=== PATIENT | male | born 1985 | race African-American/Black ===

== ENCOUNTER 2017-10-25 19:16 | Emergency (ER) | payer OTHER ==
[~2017-10-25] VITALS: Ht 190.5 cm; Wt 70.3 kg
[2017-10-25 19:30] VITALS: BP 129/72
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
[2017-10-25 21:58] LABS: BILIRUBIN,URINE NEGATIVE (NEG); GLUCOSE,URINE NEGATIVE (NEG); NITRITE,URINE NEGATIVE (NEG); PROTEIN,URINE NEGATIVE (NEG-TRACE); UROBILINOGEN,URINE 0.2 mg/dL (0.2 mg/dL)
[2017-10-25 22:05] LABS: BACTERIA,URINE 0 /HPF (0-FEW); RBC,URINE 0 /HPF (0-2); SQUAMOUS EPITHELIAL CELL,UR OCC /LPF
[2017-10-25] MEDS ORDERED: CYCL10TA2 PO (22:11)
[2017-10-25] MEDS ORDERED: HYDROcodone/APAP 5/325MG 1 TAB TABLET PO ONE (22:30)
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
== END 2017-10-25 22:26 | disposition home or self-care (01) ==
LOC: ER 19:16
DX: M54.5 Low back pain (principal); R51 Headache; H57.8 Other specified disorders of eye and adnexa; Z88.8 Allergy status to other drugs, medicaments and biological substances; V49.40XA Driver injured in collision with unspecified motor vehicles in traffic accident, initial encounter; Y93.89 Activity, other specified; Y99.8 Other external cause status; Y92.488 Other paved roadways as the place of occurrence of the external cause
CPT/HCPCS: 70450; 70486; 71010; 72125; 72131; 81001; 87086; 99285-25

== ENCOUNTER 2018-01-24 19:41 | Inpatient (IN) | payer OTHER ==
[2018-01-24] MEDS ORDERED: CHARCOAL/SORBITOL 50 GM/240 ML SUSPENSION. (19:52)
[2018-01-24] MEDS: CHARCOAL/SORBITOL 50 GM/240 ML SUSPENSION. PO (19:59)
[2018-01-24] MEDS: IV NORMAL SALINE 1000ML BAG 1,000 ML IV (20:00)
[2018-01-24 20:02] LABS: ADD MAN DIFF? NO
[2018-01-24 20:04] LABS: BASO # 0.1 x10^3/uL (0.0-0.2); BASO % 1 % (0-3); EOS % 0 % (0-3); HEMATOCRIT 46.2 % (39.0-53.0); HEMOGLOBIN 15.6 g/dL (13.0-17.5); LYMPH # 1.4 x10^3/uL (1.0-4.8); LYMPH % 18 % (24-48); MEAN CORPUSCULAR HEMOGLOBIN 32 pg (25-35); MEAN CORPUSCULAR HGB CONC 34 g/dL (31-37); MEAN CORPUSCULAR VOLUME 95 fL (79-100); MONO # 0.4 x10^3/uL (0.0-1.1); MONO % 6 % (0-9); NEUT # 5.6 x10^3uL (1.8-7.7); NEUT % 75 % (31-73); PLATELET COUNT 245 x10^3/uL (140-400); RED BLOOD COUNT 4.87 x10^6/uL (4.30-5.70); RED CELL DISTRIBUTION WIDTH 12.8 % (11.5-14.5); WHITE BLOOD COUNT 7.5 x10^3/uL (4.0-11.0)
[2018-01-24 20:19] LABS: ANION GAP 15 (6-14); BLOOD UREA NITROGEN 15 mg/dL (8-26); BUN/CREATININE RATIO 14 (6-20); CALCIUM 9.4 mg/dL (8.5-10.1); CARBON DIOXIDE 24 mmol/L (21-32); CHLORIDE 101 mmol/L (98-107); CREATININE 1.1 mg/dL (0.7-1.3); GFR 95.1; GLUCOSE 89 mg/dL (70-99); SODIUM 140 mmol/L (136-145)
[2018-01-24 20:23] LABS: ACETAMIN 29.5 mcg/ml (10-30); SALIC 23.3 mg/dL (2.8-20.0)
[2018-01-24 20:24] LABS: AMPHETAMINE/METHAMPHETAMINE NEG (NEG); BARBITURATES NEG (NEG); BENZODIAZEPINES NEG (NEG); CANNABINOIDS POS (NEG); COCAINE POS (NEG); ETHANOL < 10 mg/dL (0-10); ETHANOL, URINE NEG (NEG); METHADONE NEG (NEG); OPIATES NEG (NEG); PHENCYCLIDINE POS (NEG)
[2018-01-24 20:25] LABS: ALBUMIN/GLOBULIN RATIO 1.1 (1.0-1.7); ALK PHOS 57 U/L (46-116); ALT (SGPT) 22 U/L (16-63); AST (SGOT) 22 U/L (15-37); TOTAL BILIRUBIN 0.3 mg/dL (0.2-1.0); TOTAL PROTEIN 7.6 g/dL (6.4-8.2)
[2018-01-24 22:27] LABS: ACETAMIN 12.6 mcg/ml (10-30)
[2018-01-24] MEDS: ONDANSETRON PF 4 MG/2 ML VIAL. IV (22:32)
[2018-01-24] MEDS ORDERED: ZIPRASIDONE IM 20 MG VIAL. IM (22:37)
[2018-01-24] MEDS ORDERED: HALOPERIDOL LACTATE 5 MG/ML VIAL. (22:40)
[2018-01-25] MEDS ORDERED: ACETAMINOPHEN 325 MG TABLET. PO ×2 (01:15→11:30)
[2018-01-25] MEDS ORDERED: ONDANSETRON PF 4 MG/2 ML VIAL. IV ×2 (01:15→11:30)
[2018-01-25 02:24] LABS: ACETAMIN 4.33 mcg/ml (10-30); SALIC 16.6 mg/dL (2.8-20.0)
[2018-01-25] MEDS: NEOMY/BACITR/POLYMYXIN OINT PACKET. TP ×2 (06:33→09:00)
[2018-01-25] MEDS ORDERED: hydrALAZINE 20 MG/ML VIAL. IVP (11:30)
[2018-01-25] MEDS ORDERED: MORPHINE SULFATE 4 MG/ML DISP.SYRIN. IV (11:30)
[2018-01-25] MEDS ORDERED: DOCUSATE SODIUM 100 MG CAPSULE. PO (11:30)
[2018-01-25] MEDS ORDERED: traMADol 50 MG TABLET PO (11:30)
[2018-01-25 12:09] LABS: ADD MAN DIFF? NO
[2018-01-25 12:13] LABS: BASO # 0.1 x10^3/uL (0.0-0.2); BASO % 1 % (0-3); EOS # 0.1 x10^3/uL (0.0-0.7); EOS % 3 % (0-3); HEMATOCRIT 41.9 % (39.0-53.0); HEMOGLOBIN 14.2 g/dL (13.0-17.5); LYMPH # 1.6 x10^3/uL (1.0-4.8); LYMPH % 34 % (24-48); MEAN CORPUSCULAR HEMOGLOBIN 32 pg (25-35); MEAN CORPUSCULAR HGB CONC 34 g/dL (31-37); MEAN CORPUSCULAR VOLUME 95 fL (79-100); MONO # 0.3 x10^3/uL (0.0-1.1); MONO % 6 % (0-9); NEUT # 2.7 x10^3uL (1.8-7.7); NEUT % 56 % (31-73); PLATELET COUNT 207 x10^3/uL (140-400); RED CELL DISTRIBUTION WIDTH 12.6 % (11.5-14.5); WHITE BLOOD COUNT 4.8 x10^3/uL (4.0-11.0)
[2018-01-25 12:20] LABS: ANION GAP 8 (6-14); BLOOD UREA NITROGEN 12 mg/dL (8-26); CALCIUM 8.4 mg/dL (8.5-10.1); CARBON DIOXIDE 28 mmol/L (21-32); CHLORIDE 105 mmol/L (98-107); CREATININE 1.1 mg/dL (0.7-1.3); GFR 95.1; GLUCOSE 102 mg/dL (70-99); POTASSIUM 3.6 mmol/L (3.5-5.1); SODIUM 141 mmol/L (136-145)
[2018-01-25 20:12] LABS: MRSA BY PCR Negative (Negative)
== END 2018-01-25 13:18 | disposition home or self-care (01) | DRG 918 ==
LOC: 1 WEST ICU 01-25 01:06 → ER 19:41
DX: T39.1X2A Poisoning by 4-Aminophenol derivatives, intentional self-harm, initial encounter (principal); F17.210 Nicotine dependence, cigarettes, uncomplicated; T39.092A Poisoning by salicylates, intentional self-harm, initial encounter; Y92.89 Other specified places as the place of occurrence of the external cause; F31.9 Bipolar disorder, unspecified; M54.9 Dorsalgia, unspecified; G89.29 Other chronic pain; Z82.49 Family history of ischemic heart disease and other diseases of the circulatory system; Z91.5 Personal history of self-harm
CPT/HCPCS: 36415; 80048; 80053; 80307; 80329; 85025; 87641; 93005; G0480; J2405; J7030